=== PATIENT | male | born 1990 | race Two or more races ===

== ENCOUNTER 2020-07-05 18:14 | Emergency (ER) | payer SELFPAY ==
[~2020-07-05] VITALS: Ht 177.8 cm; Wt 82.0 kg
--- NOTE | 2020-07-05 18:40 | PHYS DOC ---
General Adult EDM: Chief Complaint: OVERDOSE HPI: HPI: Patient is a 29 year old male presents via POV for evaluation after being found unresponsive. Patient was taken by staff into exam room 2. Patients assisted. Patient had agonal breathing his lips were purple. IO was placed right proximal tibia --- Narcan 2 mg was aministered. Shortly after treatment patient became a /o x4 Patient admitted to smoke thc, meth, and Percocet. States took drugs for recreation--- denied suicidal attempt. Review of Systems: Review of Systems: Unable to obtain due to medical condition Heart Score: Risk Factors: Risk Factors: DM, Current or recent (<one month) smoker, HTN, HLP, family history of CAD, obesity. Risk Scores: Score 0 - 3: 2.5% MACE over next 6 weeks - Discharge Home Score 4 - 6: 20.3% MACE over next 6 weeks - Admit for Clinical Observation Score 7 - 10: 72.7% MACE over next 6 weeks - Early Invasive Strategies Physical Exam: PE: Constitutional: Acute distress HENT: lips purple Eyes: Pinpoint pupils Neck: Normal range of motion, no tenderness, supple, no stridor. [] Cardiovascular: Tachycardic Lungs & Thorax: Agonal breathing Abdomen: Bowel sounds normal, soft, no tenderness, no masses, no pulsatile masses. [] Skin: Diaphoretic Back: No tenderness, no CVA tenderness. [] Extremities: No tenderness, no cyanosis, no clubbing, ROM intact, no edema. [] Neurologic: Unresponsive EKG: EKG: [] Radiology/Procedures: Radiology/Procedures: [] Course & Med Decision Making: Course & Med Decision Making Pertinent Labs and Imaging studies reviewed. (See chart for details) [] Patient reevaluated at 1936. Patient is alert and oriented x4. He has no complaints. Labs pending. . Patient was evaluated for chief complaint white count elevated. Risk screen positive for meth and opiates. Patient reevaluated stable discharged home in the care of her father. Shikha Disclaimer: Shikha Disclaimer: This electronic medical record was generated, in whole or in part, using a voice recognition dictation system. Departure Departure Impression: Primary Impression: Accidental overdose Disposition: 01 DC HOME SELF CARE/HOMELESS Condition: STABLE Patient Instructions: Overdose, Accidental MONSERRAT STATON I DO Jul 05, 2020 18:40
[2020-07-05] MEDS ORDERED: IV NORMAL SALINE 1000ML BAG 1,000 ML IV ONE (18:45)
[2020-07-05] MEDS ORDERED: NALOXONE 0.4 MG/ML VIAL. IV ONE (18:45)
[2020-07-05 20:21] LABS: BASO # 0.1 x10^3/uL (0.0-0.2); BASO % 0 % (0-3); EOS # 0.3 x10^3/uL (0.0-0.7); EOS % 2 % (0-3); HEMATOCRIT 45.6 % (39.0-53.0); HEMOGLOBIN 15.5 g/dL (13.0-17.5); LYMPH # 1.6 x10^3/uL (1.0-4.8); LYMPH % 9 % (24-48); MEAN CORPUSCULAR HEMOGLOBIN 30 pg (25-35); MEAN CORPUSCULAR HGB CONC 34 g/dL (31-37); MEAN CORPUSCULAR VOLUME 89 fL (79-100); MONO % 6 % (0-9); NEUT # 15.2 x10^3/uL (1.8-7.7); NEUT % 84 % (31-73); PLATELET COUNT 322 x10^3/uL (140-400); RED BLOOD COUNT 5.11 x10^6/uL (4.30-5.70); RED CELL DISTRIBUTION WIDTH 13.4 % (11.5-14.5); WHITE BLOOD COUNT 18.2 x10^3/uL (4.0-11.0)
[2020-07-05 20:29] LABS: CALCIUM 8.9 mg/dL (8.5-10.1); CREATININE 0.9 mg/dL (0.7-1.3); GFR 100.5; POTASSIUM 4.7 mmol/L (3.5-5.1)
[2020-07-05 20:30] VITALS: BP 126/57
[2020-07-05 20:32] LABS: AMPHETAMINE/METHAMPHETAMINE POS (NEG); BARBITURATES NEG (NEG); BENZODIAZEPINES NEG (NEG); CANNABINOIDS NEG (NEG); COCAINE NEG (NEG); METHADONE NEG (NEG); OPIATES POS (NEG); PHENCYCLIDINE NEG (NEG)
[2020-07-05 20:35] LABS: ALBUMIN 3.4 g/dL (3.4-5.0); ALBUMIN/GLOBULIN RATIO 0.9 (1.0-1.7); TOTAL BILIRUBIN 0.1 mg/dL (0.2-1.0); TOTAL PROTEIN 7.4 g/dL (6.4-8.2)
[2020-07-05 20:47] LABS: % BANDS 9 % (0-9); % EOS 1 % (0-5); % LYMPHS 10 % (24-48); % MONOS 5 % (0-10); % SEGS 75 % (35-66); PLT ESTIMATE ADEQUATE (ADEQUATE)
== END 2020-07-05 21:03 | disposition home or self-care (01) ==
LOC: ER 18:14 → EDBD 18:24 → ER 21:03
DX: T43.621A Poisoning by amphetamines, accidental (unintentional), initial encounter (principal); T40.601A Poisoning by unspecified narcotics, accidental (unintentional), initial encounter; Y92.89 Other specified places as the place of occurrence of the external cause
CPT/HCPCS: 36415; 80053; 80307; 85007; 85025; 96361; 96374; 99285; G0480; J2310; J7030